=== PATIENT | female | born 1955 | race Caucasian/White ===

== ENCOUNTER 2017-02-21 17:54 | Emergency (ER) | payer BC, OTHER ==
[~2017-02-21] VITALS: Ht 165.1 cm; Wt 81.8 kg
[2017-02-21 18:21] VITALS: BP 106/62; PULSE 59; RESP 16; TEMP 98.6; O2SAT 94
--- NOTE | 2017-02-21 18:29 | PD ---
HPI Chief Complaint: Psychiatric Symptoms Time Seen by Provider: 18:20 Travel History International Travel<30 days: No Contact w/Intl Traveler<30days: No Traveled to known affect area: No History of Present Illness HPI 61-year-old female presents under [place] act initiated by the [employer] for evaluation of depression and suicidal thoughts. She has been feeling depressed and suicidal for several years. She reports that she moved here from [place] in 2014. A few years ago she was hospitalized for one week after attempting a jump off a bridge to kill herself. She reports that she hasn't issue with nausea and vomiting and diarrhea for the past few years and she has been seeing a GI doctor and a primary care physician for workup. She reports that this along with alcohol use have been worsening her depression. She called her insurance company today to let them know about her feelings of depression and they apparently called the police and had her [place] acted. Denies any attempts at harming herself today. She reports that she has had the thought of shooting herself with a gun. She has no access to firearms. She does endorse daily alcohol use, specifically about a pint of vodka on a daily basis. Denies any drug use, hallucinations. She does not currently see a psychiatrist. She did see a therapist back when she was living in [place]. No other complaints. [facility] Past Medical History Narrative Medical History of acid reflux, hypertension Social History Alcohol Use: Yes Tobacco Use: No Substance Use: No Allergies-Medications (Allergen,Severity, Reaction): Coded Allergies: No Known Allergies (Unverified , 02/21/17) Review of Systems Except as stated in HPI: all other systems reviewed are Neg Physical Exam Narrative GENERAL: Well-developed well-nourished female in no acute distress SKIN: Warm and dry. HEAD: Atraumatic. Normocephalic. EYES: Pupils equal and round. No scleral icterus. No injection or drainage. ENT: No nasal bleeding or discharge. Mucous membranes pink and moist. NECK: Trachea midline. No JVD. CARDIOVASCULAR: Regular rate and rhythm. No murmur appreciated. RESPIRATORY: No accessory muscle use. Clear to auscultation. Breath sounds equal bilaterally. GASTROINTESTINAL: Abdomen soft, non-tender, nondistended. Hepatic and splenic margins not palpable. MUSCULOSKELETAL: No obvious deformities. NEUROLOGICAL: Awake and alert. No obvious cranial nerve deficits. Motor grossly within normal limits. Normal speech. PSYCHIATRIC: Depressed, tearful. Insight and judgment normal. Data Data Last Documented VS Vital Signs Date Time Temp Pulse Resp B/P Pulse Ox O2 Delivery O2 Flow Rate FiO2 02/21/17 18:21 98.6 59 16 106/62 94 Room Air Orders Complete Blood Count With Diff (02/21/17 18:23) Comprehensive Metabolic Panel (02/21/17 18:23) Psych Screen (02/21/17 18:23) Drug Screen, Random Urine (02/21/17 18:23) Alcohol (Ethanol) (02/21/17 18:23) Salicylates (Aspirin) (02/21/17 18:23) Tylenol (Acetaminophen) (02/21/17 18:23) ^ Sitter (02/21/17 19:04) Potassium Chloride (Kcl) (02/21/17 19:30) Alcohol Withdrawal Asmt-Ciwa ONCE (02/21/17 19:27) Flumazenil Inj (Romazicon Inj) (02/21/17 19:30) Lorazepam (Ativan) (02/21/17 19:30) Lorazepam Inj (Ativan Inj) (02/21/17 19:30) Lorazepam (Ativan) (02/21/17 19:30) Lorazepam Inj (Ativan Inj) (02/21/17 19:30) Lorazepam Inj (Ativan Inj) (02/21/17 19:30) Lorazepam Inj (Ativan Inj) (02/21/17 19:30) Labs Laboratory Tests Test 02/21/17 18:35 White Blood Count 6.4 TH/MM3 Red Blood Count 4.67 MIL/MM3 Hemoglobin 12.9 GM/DL Hematocrit 39.2 % Mean Corpuscular Volume 83.9 FL Mean Corpuscular Hemoglobin 27.7 PG Mean Corpuscular Hemoglobin 33.0 % Concent Red Cell Distribution Width 14.2 % Platelet Count 247 TH/MM3 Mean Platelet Volume 8.0 FL Neutrophils (%) (Auto) 52.7 % Lymphocytes (%) (Auto) 34.4 % Monocytes (%) (Auto) 10.4 % Eosinophils (%) (Auto) 2.0 % Basophils (%) (Auto) 0.5 % Neutrophils # (Auto) 3.4 TH/MM3 Lymphocytes # (Auto) 2.2 TH/MM3 Monocytes # (Auto) 0.7 TH/MM3 Eosinophils # (Auto) 0.1 TH/MM3 Basophils # (Auto) 0.0 TH/MM3 CBC Comment DIFF FINAL Differential Comment Sodium Level 143 MEQ/L Potassium Level 3.1 MEQ/L Chloride Level 105 MEQ/L Carbon Dioxide Level 26.3 MEQ/L Anion Gap 12 MEQ/L Blood Urea Nitrogen 9 MG/DL Creatinine 0.86 MG/DL Estimat Glomerular Filtration 67 ML/MIN Rate Random Glucose 94 MG/DL Calcium Level 8.4 MG/DL Total Bilirubin 0.3 MG/DL Aspartate Amino Transf 33 U/L (AST/SGOT) Alanine Aminotransferase 37 U/L (ALT/SGPT) Alkaline Phosphatase 96 U/L Total Protein 7.1 GM/DL Albumin 3.5 GM/DL Salicylates Level LESS THAN 1.7 MG/DL Acetaminophen Level LESS THAN 2.0 MCG/ML Ethyl Alcohol Level 246 MG/DL MDM Medical Decision Making Medical Screen Exam Complete: Yes Emergency Medical Condition: Yes Medical Record Reviewed: Yes Differential Diagnosis Major depressive disorder, adjustment reaction, substance induced mood disorder , acute psychosis Narrative Course 61-year-old female presents under [place] act for evaluation of depression and suicidal thoughts. Mental health screening discussed with the patient. Psychiatric screen ordered. Lab work has been reviewed. Potassium was low at 3.1, she will be given 40 mEq orally. Alcohol level is elevated at 246. The patient is medically cleared for psychiatric disposition. A sitter has been ordered. CIWA precautions initiated. Diagnosis Primary Impression: Alcoholism Additional Impression: Depression Qualified Code: F32.9 - Depression, unspecified depression type Jose Rutledge Feb 21, 2017 18:29
[2017-02-21 18:58] LABS: AUTOMATED NEUTROPHIL # 3.4 TH/MM3 (1.8-7.7); BASOPHIL % 0.5 % (0.0-2.0); EOSINOPHIL # 0.1 TH/MM3 (0-0.4); HEMATOCRIT 39.2 % (35.0-46.0); HEMO FLAGS DIFF FINAL; LYMPH % 34.4 % (9.0-44.0); LYMPHOCYTE # 2.2 TH/MM3 (1.0-4.8); MEAN CELL VOLUME 83.9 FL (80.0-100.0); MEAN CORPUSCULAR HEMOGLOBIN 27.7 PG (27.0-34.0); MONO % 10.4 % (0.0-8.0); NEUT % 52.7 % (16.0-70.0); PLATELET COUNT 247 TH/MM3 (150-450); RED BLOOD COUNT 4.67 MIL/MM3 (4.00-5.30); RED CELL DISTRIBUTION WIDTH 14.2 % (11.6-17.2); WHITE BLOOD COUNT 6.4 TH/MM3 (4.0-11.0)
[2017-02-21 19:20] LABS: ANION GAP 12 MEQ/L (5-15)
[2017-02-21 19:24] LABS: ACETAMINOPHEN LESS THAN 2.0 MCG/ML (10.0-30.0); ALKALINE PHOSPHATASE 96 U/L (45-117); ALT (GPT) 37 U/L (10-53); AST (GOT) 33 U/L (15-37); BICARBONATE 26.3 MEQ/L (21.0-32.0); BLOOD UREA NITROGEN 9 MG/DL (7-18); CHLORIDE 105 MEQ/L (98-107); GLOMERULAR FILTRATION RATE 67 ML/MIN (>89); POTASSIUM 3.1 MEQ/L (3.5-5.1); SODIUM (NA) 143 MEQ/L (136-145); TOTAL BILIRUBIN ADULT 0.3 MG/DL (0.2-1.0)
[2017-02-21] MEDS ORDERED: LORazepam 2 MG TAB PO PRN (19:30)
[2017-02-21] MEDS ORDERED: LORazepam 2 MG/ML VIAL IV PUSH PRN ×4 (19:30)
[2017-02-21] MEDS ORDERED: FLUMAZENIL 0.5 MG/5 ML VIAL IV PUSH PRN (19:30)
[2017-02-21] MEDS ORDERED: LORazepam 1 MG TAB PO PRN (19:30)
[2017-02-21] MEDS ORDERED: POTASSIUM CHLORIDE 20 MEQ CONTROLLED RELEASE TAB PO ONE (19:30)
[2017-02-21 19:34] VITALS: BP 100/63; PULSE 63; RESP 16; TEMP 98.5; O2SAT 97
[2017-02-21] MEDS ORDERED: NEXI40CA PO (20:20)
[2017-02-21] MEDS ORDERED: TOPR50TA PO (20:20)
[2017-02-21] MEDS ORDERED: LOSA100T PO (20:20)
[2017-02-21] MEDS ORDERED: AMLO5TAB2 PO (20:20)
[2017-02-21 20:34] LABS: AMPHETAMINE, URINE NEG (NEG); BARBITURATES, URINE NEG (NEG); COCAINE, URINE NEG (NEG)
[2017-02-21 22:00] VITALS: BP_SYST 122; BP_SYST 153; BP_DIAS 72; BP_DIAS 86; PULSE 107; PULSE 83; RESP 18; RESP 20; O2SAT 97
== END 2017-02-22 00:20 ==
LOC: NEPJ 17:54
DX: F10.20 Alcohol dependence, uncomplicated (principal); F32.9 Major depressive disorder, single episode, unspecified; Y90.8 Blood alcohol level of 240 mg/100 ml or more
CPT/HCPCS: 80053; 80307; 85025; 99285